=== PATIENT | female | born 1990 | race Caucasian/White ===

== ENCOUNTER 2018-06-15 18:33 | Emergency (ER) | payer OTHER ==
[2018-06-15 19:17] VITALS: BP 116/78
[2018-06-15] MEDS ORDERED: Al Hydrox/Mg Hydrox/Simet LIQ* 30 ML UDC PO ONE (19:38)
[2018-06-15] MEDS ORDERED: Lidocaine 2% VISCOUS* 15 ML UDC PO ONE (19:39)
--- NOTE | 2018-06-15 19:44 | UC ---
Abdominal Pain Female HPI - HPI Summary HPI Summary: The patient is a 27 year old female presenting to with a chief complaint of abdominal pain, epigastric burning onset the last couple of days. Pt reports dark stool, nausea, Pt with some acid belching. The dark stool is fluffy and mucousy, and she is having bowel movements up to 5x/1hr.Pt states has not have a BM since 1pm. Pt had an endoscopy 2 years ago in [place], [place], dxed with mild gastritis and a mild hiatal hernia. The pt does not like to take meds so she has not taken anything and is not prescribed anything for the gastritis. The pt denies any diet change in the last 24 hours, travel, antibiotics, other sickness , any medication, trauma, or surgeries, as well as burning when urinating, vaginal discharge that is discolored or has an odor, any concern for an STI. No fever, chills rash. LNMP 2 weeks ago, mild concern for because she does not use protection. Patients medications reviewed this visit. - History of Current Complaint Chief Complaint: UCAbdominalPain Stated Complaint: DARK STOOL, ABDOMINAL PAIN, AND NAUSEA Time Seen by Provider: 06/15/18 19:07 Hx Obtained From: Patient Hx Last Menstrual Period: 2 weeks ago Onset/Duration: Gradual Onset, Lasting Days, Still Present Timing: Constant Severity Initially: Moderate Severity Currently: Moderate Pain Intensity: 6 Pain Scale Used: 0-10 Numeric Location: Diffuse Aggravating Factor(s): Nothing Alleviating Factor(s): Nothing Associated Signs and Symptoms: Positive: Nausea, Other: - black, fluffy, mucousy stool. Negative: Constipation, Urinary Symptoms, Vaginal Discharge Allergies/Adverse Reactions: Allergies Allergy/AdvReac Type Severity Reaction Status Date / Time No Known Allergies Allergy Verified 06/15/18 19:06 Home Medications: Home Medications Aspirin/Acetaminophen/Caffeine [Excedrin Extra Strength Caplet] 2 each PO ONCE PRN 06/15/18 [History Confirmed 06/15/18] PMH/Surg Hx/FS Hx/Imm Hx Previously Healthy: Yes GI/ History: Other Other GI/ History: mild gastritis, mild hiatal hernia - Surgical History Surgical History: None - Family History Known Family History: Positive: Other - mother has GI issues, no dx Negative: Hypertension - Social History Occupation: Student Lives: Dormitory/Roommates Alcohol Use: None Substance Use Type: None Smoking Status (MU): Never Smoked Tobacco Review of Systems Constitutional: Negative Gastrointestinal: Abdominal Pain, Nausea, Other - dark loose BM Genitourinary: Negative - vaginal discharge, discolored or odorous, burning when urinating All Other Systems Reviewed And Are Negative: Yes Physical Exam - Summary Physical Exam Summary: Vital Signs Reviewed: Yes A+Ox3, no distress Eyes: Conjunctiva Clear, HILARIA. EOM intact and full ENT: Hearing grossly normal TM x 2 clear, mmoist, uvula midline, no exudate, no erythema Neck: Positive: Supple Respiratory: Positive: No respiratory distress, No accessory muscle use + CTA throughout no w/r Cardiovascular: RRR nl s1, s2 no m/r CBT <2 sec abd soft + BS, nd, mild epigastric discomfort with deep palp. No guarding no distension. scant brown stool in vault Guiaic neg Musculoskeletal Exam: ADAM x 4 without difficulty Strength Intact, ROM Intact Neurological: Positive: Alert, + sensation throughout Psychological: Positive: Normal Response To Family Skin: Positive: no rash, no ecchymosis Triage Information Reviewed: Yes Vital Signs: Initial Vital Signs Temp 99.4 F 06/15/18 19:08 Pulse 73 06/15/18 19:08 Resp 14 06/15/18 19:08 BP 116/78 06/15/18 19:08 Pulse Ox 100 06/15/18 19:08 Re-Evaluation - Re-Evaluation 1 Re-Evaluation Time: 20:14 Change: Improved Comment: Pt's abd pain has resolved following GI cocktail. d/w pt pepcid. prn maalox/tums. hydrate. small meal. avoid citric/spicy. f/u with [place]. strit return precautions Abd Pain Female Course/Dx - Course Course Of Treatment: Patient presents with 36 hours of epigastric discomfort nausea belching acid flavors. Patient also reports that she's had several episodes of dark diarrhea. Patient states it was almost black. No blood. Patient has not had a bowel movement since noon. Patient is not taking anything for her discomfort. Patient states she's had a diagnosis of gastritis and hiatal hernia in the past but does not take medication. Patient without fevers. Vital signs stable. Patient was scant stool in her vault that was negative for blood. Patient with mild epigastric discomfort. We'll check a urine, . We'll also give patient GI cocktail and reassess. - Differential Dx/Diagnosis Provider Diagnoses: gastritis Discharge - Sign-Out/Discharge Documenting (check all that apply): Patient Departure All imaging exams completed and their final reports reviewed: No Studies - Discharge Plan Condition: Stable Disposition: HOME Prescriptions: Famotidine TAB* [Pepcid 20 MG TAB*] 20 mg PO DAILY #14 tab Patient Education Materials: Gastritis (ED) Referrals: [facility] [Outside] No Primary Care Phys,NOPCP [Primary Care Provider] - Additional Instructions: - Stay well hydrated Drink plenty of non-caffinated, non-carbonated, non carbonated beverage - eat small, frequent meals. It is recommended you eat bland food - dry toast, scrambled eggs, crackers, rice - avoid spicy food, acidic foods, citric based food (citric food, tomato based food) - Take pepcid daily as prescribed until gone - Okay to take Maalox or Tums as needed 3 times a day for stomach discomfort - If you develop increased pain, blood in your stool, vomiting, fever, or any other concerns it is recommended you go to the emergency department for further evaluatioin Schedule a follow-up with [facility] in the next 5-7 days - Billing Disposition and Condition Condition: STABLE Disposition: Home - Attestation Statements Document Initiated by Veronica: Yes Documenting Scribe: Jo Orozco Provider For Whom Veronica is Documenting (Include Credential): Lexi Casillas MD. Scribe Attestation: IJo, scribed for Lexi Casillas MD. on 06/15/18 at 2146. Scribe Documentation Reviewed: Yes Provider Attestation: The documentation as recorded by the sharanibJo pandey accurately reflects the service I personally performed and the decisions made by me, Lexi Casillas MD.
== END 2018-06-15 20:30 | disposition home or self-care (01) ==
LOC: UCEAST 18:33
DX: K29.70 Gastritis, unspecified, without bleeding (principal); K44.9 Diaphragmatic hernia without obstruction or gangrene
CPT/HCPCS: 81003; 82272; 84702; 99202; A9270-GY; G0463